=== PATIENT | female | born 1990 | race Caucasian/White ===

== ENCOUNTER 2016-09-23 16:23 | Emergency (ER) | payer OTHER ==
[2016-09-23 16:29] VITALS: BP 115/48; PULSE 73; TEMP 98.5; BMI 27.3
--- NOTE | 2016-09-23 17:52 | PDOC ---
History of Present Illness - General History Source: Patient, Old Records Exam Limitations: No Limitations - History of Present Illness Initial Comments: 09/23/16 17:53 The patient is a 26 year old female who is currently 6 weeks , A1 with no significant past medical history, who presents to the emergency department with vaginal bleeding and abdominal pain. She reports that she had a positive test 4 days ago but has not seen an [facility] yet. She describes her abdominal pain as a cramping sensation. She reports that her vaginal bleeding is brown in color and started out as spotting but has increased. The patient denies chest pain, shortness of breath, headache and dizziness. Denies fever, chills, nausea, vomit, diarrhea and constipation. Denies dysuria, frequency and urgency. LMP: End july Allergies: None Past surgical history: None reported Social history: No alcohol, tobacco or drug use reported <Nik Cohen - Last Filed: 09/23/16 17:55> - General History Source: Patient Exam Limitations: No Limitations <Breanna Ya - Last Filed: 09/23/16 22:40> - General Chief Complaint: Vaginal Bleeding Stated Complaint: VAGINAL BLEEDING/ Past History <Nik Cohen - Last Filed: 09/23/16 17:55> - Past Medical History Asthma: No Cancer: No Cardiac Disorders: No Diabetes: No HTN: No Seizures: No Thyroid Disease: No - Psycho/Social/Smoking Cessation Hx Anxiety: No Suicidal Ideation: No Smoking History: Never smoked Have you smoked in the past 12 months: No Hx Alcohol Use: No Drug/Substance Use Hx: No Substance Use Type: None Hx Substance Use Treatment: No <Breanna Ya - Last Filed: 09/23/16 22:40> - Past Medical History Allergies/Adverse Reactions: Allergies Allergy/AdvReac Type Severity Reaction Status Date / Time No Known Allergies Allergy Verified 09/23/16 16:29 Home Medications: Ambulatory Orders NK [No Known Home Medication] 09/23/16 Review of Systems - Review of Systems Able to Perform ROS?: Yes Comments:: 09/23/16 17:53 GENERAL/CONSTITUTIONAL: No fever or chills. No weakness. HEAD, EYES, EARS, NOSE AND THROAT: No change in vision. No ear pain or discharge. No sore throat. CARDIOVASCULAR: No chest pain or shortness of breath RESPIRATORY: No cough, wheezing, or hemoptysis. GASTROINTESTINAL: (+) Abdominal pain, vaginal bleeding. No nausea, vomiting, diarrhea or constipation. GENITOURINARY: No dysuria, frequency, or change in urination. MUSCULOSKELETAL: No joint or muscle swelling or pain. No neck or back pain. SKIN: No rash NEUROLOGIC: No headache, vertigo, loss of consciousness, or change in strength/ sensation. ENDOCRINE: No increased thirst. No abnormal weight change HEMATOLOGIC/LYMPHATIC: No anemia, easy bleeding, or history of blood clots. ALLERGIC/IMMUNOLOGIC: No hives or skin allergy. <Nik Cohen - Last Filed: 09/23/16 17:55> *Physical Exam - Vital Signs Last Vital Signs Temp Pulse Resp BP Pulse Ox 98.5 F 73 20 115/48 99 09/23/16 16:26 09/23/16 16:26 09/23/16 16:26 09/23/16 16:26 09/23/16 16:26 - Physical Exam Comments: 09/23/16 17:54 GENERAL: Awake, alert, and fully oriented, in no acute distress HEAD: No signs of trauma, normocephalic, atraumatic EYES: PERRLA, EOMI, sclera anicteric, conjunctiva clear ENT: Auricles normal inspection, hearing grossly normal, nares patent, oropharynx clear without exudates. Moist mucosa NECK: Normal ROM, supple, no lymphadenopathy, JVD, or masses LUNGS: No distress, speaks full sentences, clear to auscultation bilaterally HEART: Regular rate and rhythm, normal S1 and S2, no murmurs, rubs or gallops, peripheral pulses normal and equal bilaterally. ABDOMEN: Soft, nontender, normoactive bowel sounds. No guarding, no rebound. No masses EXTREMITIES: Normal inspection, Normal range of motion, no edema. No clubbing or cyanosis. NEUROLOGICAL: A&O X 3 SKIN: Warm, Dry, normal turgor, no rashes or lesions noted PELVIC: <Nik Cohen - Last Filed: 09/23/16 17:55> - Vital Signs Last Vital Signs Temp Pulse Resp BP Pulse Ox 98.5 F 73 20 115/48 99 09/23/16 16:26 09/23/16 16:26 09/23/16 16:26 09/23/16 16:26 09/23/16 16:26 <Breanna Ya - Last Filed: 09/23/16 22:40> ED Treatment Course - LABORATORY CBC & Chemistry Diagram: 09/23/16 18:05 09/23/16 18:05 <Breanna Ya - Last Filed: 09/23/16 22:40> Medical Decision Making - Medical Decision Making 09/23/16 17:50 26 yo G3p ( 1 miscarriage, 1 vag ) currently 6 weeks by LMP end of july, here with spotting. and cramping. started today. brownish and sticky, less than period. no lightheaded. no mod factors. no prior ectopic. has not seen OB yet, just had positive home test 4 days prior. on exam awake alert lungs clear heart RRR no m/r.g abd soft NT ND. skin warm and dryl. ext wwp. skin warm no rash. nuero alert and oriented. plan: differential: ecoptic, threated AB, early , missed ab. plan tvus labs ivf, reassess. blood type for RH <Breanna Ya - Last Filed: 09/23/16 22:40> *DC/Admit/Observation/Transfer - Attestations Scribe Attestion: 09/23/16 17:54 Documentation prepared by Nik Cohen, acting as medical library assistant for Breanna Ya MD <Nik Cohen - Last Filed: 09/23/16 17:55> <Breanna Ya - Last Filed: 09/23/16 22:40> Diagnosis at time of Disposition: Missed , Ectopic - Discharge Dispostion Disposition: HOME Condition at time of disposition: Good - Referrals Referrals: Coral Black MD [Staff Physician] - - Patient Instructions Printed Discharge Instructions: Ectopic Additional Instructions: you need to return to the hospital in 48 hours to have a repeat beta HCG level drawn. the is not visible in the uterus, therfore ectopic is still a concerns. return for sudden onset worsening pain, bleeding or any concerns.
[2016-09-23] MEDS ORDERED: SODIUM CHLORIDE 0.9% 1000 ML INFUS.BAG IV ONE (17:53)
[2016-09-23 18:13] LABS: BASOPHIL 0.5 % (0-2.0); EOSINOPHIL 0.9 % (0-4.5); MCH 29.5 pg (25.7-33.7); MCHC 34.6 g/dl (32.0-36.0); MEAN CELL VOLUME 85.1 fl (80-96); MEAN PLT VOLUME 7.1 fl (7.5-11.1); NEUTROPHILS 67.8 % (42.8-82.8); PLATELET COUNT 387 K/MM3 (134-434); RDW 13.8 % (11.6-15.6); WHITE BLOOD COUNT 7.4 K/mm3 (4.0-10.0)
[2016-09-23 18:48] LABS: ALBUMIN 3.4 g/dl (3.4-5.0); ANION GAP 7 (8-16); BILIRUBIN,TOTAL 0.2 mg/dL (0.2-1.0); CALCIUM 8.7 mg/dL (8.5-10.1); CO2 25 mmol/L (21-32); CREATININE 0.5 mg/dL (0.55-1.02); GLUCOSE,RANDOM 99 mg/dL (74-106); SGOT/AST 17 U/L (15-37); SGPT/ALT 27 U/L (12-78); TOT PROT 6.7 g/dl (6.4-8.2)
[2016-09-23 19:03] LABS: ALK PHOS 87 U/L (45-117)
[2016-09-23 19:24] LABS: URINE APPEARANCE CLOUDY; URINE BILIRUBIN NEGATIVE (NEGATIVE); URINE BLOOD 3+ (NEGATIVE); URINE COLOR DKYELLOW; URINE GLUCOSE (UA) NEGATIVE (NEGATIVE); URINE KETONE NEGATIVE (NEGATIVE); URINE LEUK ESTERASE NEGATIVE (NEGATIVE); URINE NITRITE NEGATIVE (NEGATIVE); URINE UROBILINOGEN NEGATIVE mg/dL (0.2-1.0)
[2016-09-23 19:47] LABS: URINE PROTEIN 2+ (NEGATIVE)
[2016-09-23 20:22] LABS: CALCIUM OXALATE CRYSTALS RARE /hpf (NONE SEEN); URINE BACTERIA RARE /hpf (NONE SEEN); URINE MUCUS MODERATE; URINE RBC 1157 /hpf (0-3); URINE WBC 17 /hpf (3-5)
== END 2016-09-23 23:01 | disposition home or self-care (01) ==
LOC: JER 16:23
DX: O26.891 Other specified pregnancy related conditions, first trimester (principal); Z3A.01 Less than 8 weeks gestation of pregnancy; O02.1 Missed abortion; O00.90 Unspecified ectopic pregnancy without intrauterine pregnancy
CPT/HCPCS: 36415; 76817-TC; 80053; 81003; 81015; 84702; 85025; 86850; 86900; 86901; 99282-25

== ENCOUNTER 2016-09-25 14:45 | Emergency (ER) | payer OTHER ==
[2016-09-25 15:12] VITALS: BP 100/59; PULSE 70; TEMP 98.3; BMI 27.3
--- NOTE | 2016-09-25 16:33 | PDOC ---
History of Present Illness - General Chief Complaint: Revisit, Lab Variance Stated Complaint: FOLLOW-UP Time Seen by Provider: 09/25/16 15:41 History Source: Patient Exam Limitations: No Limitations - History of Present Illness Initial Comments: 09/25/16 16:28 Patient was seen in this emergency department 2 days ago with complaints of abdominal pain, and vaginal bleeding. Was found to be at that time with a beta hCG of 2248. Ultrasound did not reveal any intrauterine . Instructed to return to this emergency Department in 2 days for repeat beta hCG and evaluation for persistent abdominal pain and bleeding. Patient reports she has consistent bleeding and is moderately heavier than her normal menstrual cycle and has noted some clots and tissue-like substance. Patient denies fever, no nausea or vomiting, but has some intermittent cramping primarily on the left side with radiation to the back. Bowels and bladder are normal Timing/Duration: unsure (last normal menstrual period is end of July) Associated Symptoms: reports: fever/chills Past History - Travel Traveled outside of the country in the last 30 days: No Close contact w/someone who was outside of country & ill: No - Past Medical History Allergies/Adverse Reactions: Allergies Allergy/AdvReac Type Severity Reaction Status Date / Time No Known Allergies Allergy Verified 09/25/16 15:09 Home Medications: Ambulatory Orders NK [No Known Home Medication] 09/23/16 Asthma: No Cancer: No Cardiac Disorders: No Diabetes: No HTN: No Seizures: No Thyroid Disease: No - Immunization History Immunization Up to Date: Yes - Psycho/Social/Smoking Cessation Hx Anxiety: No Suicidal Ideation: No Smoking History: Never smoked Have you smoked in the past 12 months: No Hx Alcohol Use: No Drug/Substance Use Hx: No Substance Use Type: None Hx Substance Use Treatment: No Review of Systems - Review of Systems Able to Perform ROS?: Yes Is the patient limited Kinyarwanda proficient: Yes Constitutional: Yes: Symptoms Reported, See HPI, Loss of Appetite. No: Fever HEENTM: Yes: See HPI. No: Symptoms Reported Respiratory: Yes: See HPI. No: Symptoms reported ABD/GI: Yes: Symptoms Reported, See HPI, Abdominal cramping : No: Symptoms Reported Neurological: No: Symptoms reported All Other Systems: Reviewed and Negative *Physical Exam - Vital Signs Last Vital Signs Temp Pulse Resp BP Pulse Ox 98.3 F 70 18 100/59 98 09/25/16 15:00 09/25/16 15:00 09/25/16 15:00 09/25/16 15:00 09/25/16 15:00 - Physical Exam General Appearance: Yes: Nourished, Appropriately Dressed, Apparent Distress HEENT: positive: WALLACE, Normal ENT Inspection, TMs Normal, Pharynx Normal Neck: positive: Supple. negative: Tender Respiratory/Chest: positive: Lungs Clear, Normal Breath Sounds Cardiovascular: positive: Regular Rate Gastrointestinal/Abdominal: positive: Normal Bowel Sounds, Tender (mild suprapubic tenderness, without rebound or guarding, no fullness), Soft. negative: Guarding, Rebound, Tenderness Musculoskeletal: positive: Normal Inspection Extremity: positive: Normal Capillary Refill, Normal Inspection Integumentary: positive: Normal Color, Dry, Warm, Pale Neurologic: positive: crew person II-XII NML intact, Fully Oriented, Alert, Normal Mood/ Affect, Normal Response, Motor Strength 5/5 ED Treatment Course - RADIOLOGY Radiology Studies Ordered: Category Date Time Status LIMITED US [US] Stat Ultrasound 09/25/16 15:50 Ordered Medical Decision Making - Medical Decision Making 09/25/16 16:33 09/25/16 19:13 Repeat ultrasound did not reveal any intrauterine nor any obvious mass or evidence of ectopic . Patient discussed findings of beta hCG reduction and repeated ultrasound without evidence of and diagnosis of miscarriage. Will follow-up with Dr. Marie or [facility] doctor early next week. Understands to return immediately for worsened pain, fevers, worsening bleeding or any problems. 09/25/16 19:15 *DC/Admit/Observation/Transfer Diagnosis at time of Disposition: Missed - Discharge Dispostion Disposition: HOME Condition at time of disposition: Stable Admit: No - Referrals Referrals: Stephen Eastman MD [Staff Physician] - - Patient Instructions Printed Discharge Instructions: DI for Miscarriage Additional Instructions: Avoid strenuous activity or heavy lifting until symptoms resolve Drink lots of fluids, soups, water, teas FOllow up with [facility] early next week for reevaluation Your initial beta hCG was 2248 on 816, today's beta hCG was 576 - Post Discharge Activity Work/School Note: Back to Work
== END 2016-09-25 19:13 | disposition home or self-care (01) ==
LOC: JERFT 14:45
DX: O02.1 Missed abortion (principal)
CPT/HCPCS: 36415; 76815-TC; 84702; 99281-25

== ENCOUNTER 2016-12-30 13:40 | Emergency (ER) | payer OTHER ==
[2016-12-30 13:47] VITALS: BMI 27.7
[2016-12-30] MEDS ORDERED: ACETAMINOPHEN 1000 MG/100 ML VIAL (NON FORMULARY) IVPB ONE (15:03)
--- NOTE | 2016-12-30 15:03 | PDOC ---
History of Present Illness - General Chief Complaint: Headache Stated Complaint: HEADACHE Time Seen by Provider: 12/30/16 14:21 History Source: Patient Exam Limitations: No Limitations - History of Present Illness Initial Comments: 12/30/16 14:59 26F 10 weeks [id number] presenting with headache increasing in intensity. 2 days ago woke up with bifrontal headache that progressed down her left face and neck 8-10. Pain increased when chewing food on the left side. No change in vision, no auras. Had migraine episode for a week before but that pain is notjhing like it. Pain reproducible on palpation Miscarriage on September 25. 12/30/16 16:13 Past History - Past Medical History Allergies/Adverse Reactions: Allergies Allergy/AdvReac Type Severity Reaction Status Date / Time No Known Allergies Allergy Verified 12/30/16 14:23 Home Medications: Ambulatory Orders Pnv with Ca,No.72/Iron/FA [ Plus Tablet] 1 each PO DAILY 12/30/16 Asthma: No Cancer: No Cardiac Disorders: No COPD: No Diabetes: No HTN: No Seizures: No Thyroid Disease: No - Immunization History Immunization Up to Date: Yes - Suicide/Smoking/Psychosocial Hx Smoking History: Never smoked Have you smoked in the past 12 months: No Hx Alcohol Use: No Drug/Substance Use Hx: No Substance Use Type: None Hx Substance Use Treatment: No *Physical Exam - Vital Signs Last Vital Signs Temp Pulse Resp BP Pulse Ox 98.4 F 101 H 20 113/60 97 12/30/16 13:44 12/30/16 13:44 12/30/16 13:44 12/30/16 13:44 12/30/16 13:44 ED Treatment Course - LABORATORY CBC & Chemistry Diagram: 12/30/16 15:30 12/30/16 15:30 *DC/Admit/Observation/Transfer Diagnosis at time of Disposition: Migraine - Discharge Dispostion Disposition: HOME Admit: No - Referrals Referrals: Eladio Berry DO [Staff Physician] - - Patient Instructions Printed Discharge Instructions: Chiari Malformation Additional Instructions: Follow up with appointment with Dr. Berry. Come back to the ED for any new, worsening or concerning symptom. Come back also if headache gets worse or persists. - Post Discharge Activity
[2016-12-30] MEDS ORDERED: METOCLOPRAMIDE HCL INJECTION 10 MG/2 ML VIAL IVPUSH ONE (15:04)
[2016-12-30] MEDS ORDERED: ACETAMINOPHEN INJECTION 100 ML IVPB ONE (15:09)
[2016-12-30] MEDS ORDERED: METOCLOPRAMIDE HCL INJECTION 10 MG/2 ML VIAL ONE (15:09)
[2016-12-30 15:12] VITALS: BP 91/70; PULSE 98; TEMP 98.1
[2016-12-30] MEDS ORDERED: SODIUM CHLORIDE 1,000 ML IV STA (15:12)
--- NOTE | 2016-12-30 15:12 | PDOC ---
Attending Attestation - Resident Resident Name: Thierno Saleh - ED Attending Attestation I have performed the following: I have examined & evaluated the patient, The case was reviewed & discussed with the resident, I agree w/resident's findings & plan, Exceptions are as noted - HPI HPI: 26 yo F currently 10 WGA presents with headache. She states the headache was initially bifrontal, then migrated to L face. The left side of her face is extremely painful, making it difficult to move her jaw. Her face is painful to the touch as well. Denies weakness, numbness. No prior similar symptoms. She typically does not suffer from migraines. No N/V, light sensitivity, sensitivity to sound. - Physicial Exam PE: GENERAL: Awake, alert, and fully oriented, in no acute distress HEAD: No signs of trauma. Left side of face tender to palpation. EYES: PERRLA, EOMI, sclera anicteric, conjunctiva clear ENT: Auricles normal inspection, hearing grossly normal, nares patent, oropharynx clear without exudates. Moist mucosa NECK: Normal ROM, supple, no lymphadenopathy, JVD, or masses LUNGS: Breath sounds equal, clear to auscultation bilaterally. No wheezes, and no crackles HEART: Regular rate and rhythm, normal S1 and S2, no murmurs, rubs or gallops ABDOMEN: Soft, nontender, normoactive bowel sounds. No guarding, no rebound. No masses EXTREMITIES: Normal range of motion, no edema. No clubbing or cyanosis. No cords, erythema, or tenderness NEUROLOGICAL: Cranial nerves II through XII grossly intact. Normal speech, normal gait SKIN: Warm, Dry, normal turgor, no rashes or lesions noted. - Medical Decision Making Pt with severe headache. DDx includes cluster headache, trigeminal neuralgia, and cerebral venous thrombosis. D/w neuro, will obtain MRI to further evaluate.
[2016-12-30 15:39] LABS: BASOPHIL 0.2 % (0-2.0); EOSINOPHIL 0.1 % (0-4.5); MCH 29.6 pg (25.7-33.7); MCHC 34.6 g/dl (32.0-36.0); MEAN CELL VOLUME 85.6 fl (80-96); MEAN PLT VOLUME 6.9 fl (7.5-11.1); NEUTROPHILS 88.6 % (42.8-82.8); PLATELET COUNT 380 K/MM3 (134-434); RDW 13.5 % (11.6-15.6); WHITE BLOOD COUNT 14.5 K/mm3 (4.0-10.0)
[2016-12-30 16:02] LABS: ALBUMIN 3.2 g/dl (3.4-5.0); ANION GAP 11 (8-16); BILIRUBIN,TOTAL 0.4 mg/dL (0.2-1.0); CALCIUM 9.1 mg/dL (8.5-10.1); CO2 23 mmol/L (21-32); CREATININE 0.5 mg/dL (0.55-1.02); GLUCOSE,RANDOM 79 mg/dL (74-106); SGOT/AST 13 U/L (15-37); SGPT/ALT 17 U/L (12-78)
[2016-12-30 16:17] LABS: ALK PHOS 100 U/L (45-117)
[2016-12-30 16:43] LABS: URINE APPEARANCE SLCLOUDY; URINE BILIRUBIN NEGATIVE (NEGATIVE); URINE BLOOD NEGATIVE (NEGATIVE); URINE COLOR YELLOW; URINE GLUCOSE (UA) NEGATIVE (NEGATIVE); URINE KETONE 2+ (NEGATIVE); URINE NITRITE NEGATIVE (NEGATIVE); URINE PROTEIN NEGATIVE (NEGATIVE); URINE UROBILINOGEN NEGATIVE mg/dL (0.2-1.0)
[2016-12-30 18:51] LABS: URINE LEUK ESTERASE Negative (NEGATIVE)
== END 2016-12-30 20:06 | disposition home or self-care (01) ==
LOC: JER 13:40
PROC: 3E0337Z Introduction of Electrolytic and Water Balance Substance into Peripheral Vein, Percutaneous Approach (ICD-10-PCS; principal; 2016-12-30)
PROC: 3E033GC Introduction of Other Therapeutic Substance into Peripheral Vein, Percutaneous Approach (ICD-10-PCS; 2016-12-30)
PROC: 3E033NZ Introduction of Analgesics, Hypnotics, Sedatives into Peripheral Vein, Percutaneous Approach (ICD-10-PCS; 2016-12-30)
DX: G43.909 Migraine, unspecified, not intractable, without status migrainosus (principal)
CPT/HCPCS: 36415; 70544-TC; 70551-TC; 80053; 81003; 84702; 85025; 99284-25

== ENCOUNTER 2017-01-07 10:33 | Emergency (ER) | payer OTHER ==
[2017-01-07 10:38] VITALS: BP 107/92; PULSE 84; TEMP 98.2; BMI 28.3
--- NOTE | 2017-01-07 11:25 | PDOC ---
History of Present Illness - General Chief Complaint: Vaginal Bleeding Stated Complaint: VAGINAL BLEEDING (14 WKS ) Time Seen by Provider: 01/07/17 11:10 - History of Present Illness Initial Comments: 01/07/17 11:25 26 yo at 14 wga confirmed by U/S, and no significant pmh who presents with vaginal bleeding. Pt. reports transient episode of vaginal bleeding this AM noticed after urinating. States that she visualized bright red blood on toilet paper. Also endorses crampy, intermittent, RLQ abdominal pain beginning yesterday evening. No identifiable triggers or alleviators. + nausea without vomiting. Denies dysuria, hematuria, flank pain, fevers/chills, constipation, diarrhea, chest pain, SOB, lightheadedness, YANEZ. 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 Recent Abdominal U/S (01/06/17) with viable intrauterine gestation. Denies alcohol, tobacco, illicit drug use. Past History - Past Medical History Allergies/Adverse Reactions: Allergies Allergy/AdvReac Type Severity Reaction Status Date / Time No Known Allergies Allergy Verified 01/07/17 10:38 Home Medications: Ambulatory Orders Pnv with Ca,No.72/Iron/FA [ Plus Tablet] 1 each PO DAILY 12/30/16 Asthma: No Cancer: No Cardiac Disorders: No COPD: No Diabetes: No HTN: No Seizures: No Thyroid Disease: No Other medical history: denies - Reproductive History (#): 5 Para: 1 Therapeutic (s) & number: Yes (3) Spontaneous : 1 - Immunization History Immunization Up to Date: Yes - Suicide/Smoking/Psychosocial Hx Smoking History: Never smoked Have you smoked in the past 12 months: No Information on smoking cessation initiated: No Hx Alcohol Use: No Drug/Substance Use Hx: No Substance Use Type: None Hx Substance Use Treatment: No Review of Systems - Review of Systems Comments:: 01/07/17 11:34 GENERAL/CONSTITUTIONAL: No fever or chills. No weakness. HEAD, EYES, EARS, NOSE AND THROAT: No change in vision. No ear pain or discharge. No sore throat.- CARDIOVASCULAR: No chest pain or shortness of breath RESPIRATORY: No cough, wheezing, or hemoptysis. GASTROINTESTINAL: + abdominal pain, nausea. no vomiting, diarrhea or constipation. GENITOURINARY: No dysuria, frequency, or change in urination. MUSCULOSKELETAL: No joint or muscle swelling or pain. No neck or back pain. SKIN: No rash NEUROLOGIC: No headache, vertigo, loss of consciousness, or change in strength/ sensation. ENDOCRINE: No increased thirst. No abnormal weight change HEMATOLOGIC/LYMPHATIC: No anemia, easy bleeding, or history of blood clots. ALLERGIC/IMMUNOLOGIC: No hives or skin allergy. *Physical Exam - Vital Signs Last Vital Signs Temp Pulse Resp BP Pulse Ox 98.2 F 84 18 107/92 99 01/07/17 10:36 01/07/17 10:36 01/07/17 10:36 01/07/17 10:36 01/07/17 10:36 - Physical Exam Comments: 01/07/17 11:34 GENERAL: Awake, alert, and fully oriented, in no acute distress HEAD: No signs of trauma, normocephalic, atraumatic EYES: PERRLA, EOMI, sclera anicteric, conjunctiva clear ENT: Hearing grossly normal, nares patent, oropharynx clear without exudates. Moist mucosa NECK: Normal ROM, no JVD, or masses LUNGS: No distress, speaks full sentences, clear to auscultation bilaterally HEART: Regular rate and rhythm, normal S1 and S2, no murmurs, rubs or gallops, peripheral pulses normal and equal bilaterally. ABDOMEN: Soft, RLQ ttp, normoactive bowel sounds. No guarding, no rebound, no rigidty. No masses. Absent CVA ttp. + suprapubic ttp. Pelvic: External genitalia normal.Cervical os closed. Absent bleeding. scant white discharge.Absent erythema or lesions. Neg tenderness on bimanual exam. EXTREMITIES : Normal inspection, Normal range of motion, no edema. No clubbing or cyanosis. SKIN: Warm, Dry, normal turgor, no rashes or lesions noted. ED Treatment Course - LABORATORY CBC & Chemistry Diagram: 01/07/17 11:30 01/07/17 11:30 Medical Decision Making - Medical Decision Making 01/07/17 11:35 26 yo at 14 wga confirmed by U/S, and no significant pmh who presents following transient episode of bright red vaginal bleeding this AM noticed after urinating. No visible clotting. States that she visualized bright red blood on toilet paper. Also endorses crampy, intermittent, RLQ abdominal pain beginning yesterday evening. No identifiable triggers or alleviators. + nausea without vomiting. Denies dysuria, hematuria, flank pain, fevers/chills, constipation, diarrhea, BRBPR, chest pain, SOB, lightheadedness, YANEZ. Physical exam with RLQ ttp and mild suprapubic ttp. Pelvic exam benign with absent bleeding, signs of infection, and cervical os close.d Will obtain U/S to r/o ectopic . Will consider ovarian pathology vs. threatened in setting of abdominal pain, and vaginal bleeding. Differential also includes cystitis. ED Course: CBC, CMP, UA, BHCG Transabdominal U/S 01/07/17 13:04 01/07/17 14:02 [facility] [place]: Unremarkable UA: 2 + Blood, 9 WBC, 2 RBC, Nitrite Neg U/S: Single live gestation at 15 w 1 d with FHR 131. 01/07/17 14:39 Patient is stable and ready for discharge with return precautions. *DC/Admit/Observation/Transfer Diagnosis at time of Disposition: Abdominal pain affecting - Discharge Dispostion Disposition: HOME Condition at time of disposition: Stable Admit: No - Referrals - Patient Instructions Printed Discharge Instructions: DI for Vaginal Bleeding, DI for Abdominal Pain -- Early Additional Instructions: Please return to the emergency department with any new or worsening symptoms or concerns. - Post Discharge Activity - Attestations Physician Attestion: 01/07/17 14:39 I attest to the documentation provided in this note.
--- NOTE | 2017-01-07 11:39 | PDOC ---
Attending Attestation - Resident Resident Name: Víctor Hendrixson - ED Attending Attestation I have performed the following: The case was reviewed & discussed with the resident, I agree w/resident's findings & plan - HPI HPI: 01/07/17 15:06 Pt presents to the ED complaining of vaginal bleeding. Patient 15 weeks . - Physicial Exam PE: 01/07/17 15:07 Patient examined by resident. 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 Os closed with minimal bleeding on resident's exam. - Medical Decision Making 01/07/17 15:08 Pt presents to the ED complaining of vaginal bleeding. Os closed on resident's pelvic exam. Patient needed to urgently leave ED prior to my exam. Plan was for discharge with follow up with primary OB.
[2017-01-07 12:01] LABS: URINE APPEARANCE SLCLOUDY; URINE BILIRUBIN NEGATIVE (NEGATIVE); URINE BLOOD 2+ (NEGATIVE); URINE COLOR YELLOW; URINE GLUCOSE (UA) NEGATIVE (NEGATIVE); URINE KETONE TRACE (NEGATIVE); URINE NITRITE NEGATIVE (NEGATIVE); URINE PROTEIN NEGATIVE (NEGATIVE)
[2017-01-07 12:05] LABS: BASOPHIL 0.4 % (0-2.0); EOSINOPHIL 0.9 % (0-4.5); MCH 29.3 pg (25.7-33.7); MCHC 34.5 g/dl (32.0-36.0); MEAN CELL VOLUME 85.1 fl (80-96); MEAN PLT VOLUME 6.4 fl (7.5-11.1); NEUTROPHILS 76.5 % (42.8-82.8); PLATELET COUNT 545 K/MM3 (134-434); WHITE BLOOD COUNT 6.6 K/mm3 (4.0-10.0)
[2017-01-07 12:26] LABS: ALBUMIN 2.9 g/dl (3.4-5.0); ALK PHOS 141 U/L (45-117); ANION GAP 8 (8-16); BILIRUBIN,TOTAL 0.3 mg/dL (0.2-1.0); CALCIUM 8.5 mg/dL (8.5-10.1); CO2 23 mmol/L (21-32); CREATININE 0.4 mg/dL (0.55-1.02); GLUCOSE,RANDOM 82 mg/dL (74-106); SGOT/AST 10 U/L (15-37); SGPT/ALT 20 U/L (12-78)
[2017-01-07 12:59] LABS: URINE BACTERIA RARE /hpf (NONE SEEN); URINE MUCUS RARE; URINE RBC 2 /hpf (0-3); URINE WBC 9 /hpf (3-5)
[2017-01-07 16:58] LABS: URINE LEUK ESTERASE Negative (NEGATIVE)
== END 2017-01-07 15:01 | disposition home or self-care (01) ==
LOC: JER 10:33
DX: O26.891 Other specified pregnancy related conditions, first trimester (principal); N93.9 Abnormal uterine and vaginal bleeding, unspecified; Z3A.12 12 weeks gestation of pregnancy
CPT/HCPCS: 36415; 76801-TC; 80053; 81003; 81015; 84702; 85025; 86850; 86900; 86901; 99283-25

== ENCOUNTER → 2017-05-18 | Emergency (ER) | payer OTHER ==
[~2017-05-18] MED LIST: ACETAMINOPHEN INJECTION 100 ML IVPB ONE; METOCLOPRAMIDE HCL INJECTION 10 MG/2 ML VIAL ONE
--- NOTE | 2017-05-18 17:20 | PDOC ---
Rapid Medical Evaluation Time Seen by Provider: 05/18/17 17:18 Medical Evaluation: Allergies Allergy/AdvReac Type Severity Reaction Status Date / Time No Known Allergies Allergy Verified 01/07/17 10:38 05/18/17 17:18 I have performed a brief in-person evaluation of this patient. The patient presents with a chief complaint of: , 33 weeks , numbness and tingling to R side of face since yesterday, itching to entire body , +SOB Pertinent physical exam findings: well appearing, no focal deficits I have ordered the following: labs The patient will proceed to the ED for further evaluation. Discharge Disposition - Diagnosis Headache in - Referrals - Patient Instructions - Post Discharge Activity
[2017-05-18 17:21] VITALS: BP 105/67; PULSE 97; TEMP 98.2; BMI 33.2
[2017-05-18 18:40] LABS: BASO % 0.3 % (0-2.0); EOS % 0.5 % (0-4.5); HEMATOCRIT 33.6 % (32.4-45.2); HEMOGLOBIN 11.6 GM/dL (10.7-15.3); LYMPH % 10.9 % (8-40); MCH 29.4 pg (25.7-33.7); MCHC 34.5 g/dl (32.0-36.0); MEAN CELL VOLUME 85.2 fl (80-96); MEAN PLT VOLUME 6.9 fl (7.5-11.1); MONO % 7.2 % (3.8-10.2); NEUT % 81.1 % (42.8-82.8); PLATELET COUNT 450 K/MM3 (134-434); RBC 3.94 M/mm3 (3.60-5.2); RDW 14.4 % (11.6-15.6); WHITE BLOOD COUNT 9.2 K/mm3 (4.0-10.0)
[2017-05-18 19:05] LABS: ALBUMIN 2.3 g/dl (3.4-5.0); ANION GAP 8 (8-16); BLOOD UREA NITROGEN 6 mg/dL (7-18); CALCIUM 8.5 mg/dL (8.5-10.1); CHLORIDE 108 mmol/L (98-107); CO2 22 mmol/L (21-32); CREATININE 0.4 mg/dL (0.55-1.02); GLUCOSE,RANDOM 89 mg/dL (74-106); POTASSIUM 3.8 mmol/L (3.5-5.1); SGOT/AST 21 U/L (15-37); SODIUM 138 mmol/L (136-145)
[2017-05-18 19:10] LABS: ALK PHOS 160 U/L (45-117); BILIRUBIN,TOTAL 0.2 mg/dL (0.2-1.0); SGPT/ALT 25 U/L (12-78); TOT PROT 6.1 g/dl (6.4-8.2)
[2017-05-18 23:57] LABS: INR 0.95 (0.82-1.09); PROTHROMBIN TIME (PATIENT) 10.7 SEC (9.98-11.88)
== END | disposition left against medical advice (07) ==
LOC: JER 17:09
DX: O26.893 Other specified pregnancy related conditions, third trimester (principal); Z3A.33 33 weeks gestation of pregnancy; R51 Headache
CPT/HCPCS: 36415; 80053; 85025; 85379; 85610; 99281-25

== ENCOUNTER 2017-05-19 09:08 | Emergency (ER) | payer OTHER ==
[2017-05-19 09:17] VITALS: TEMP 98.4; BMI 33.2
--- NOTE | 2017-05-19 10:22 | PDOC ---
History of Present Illness - General History Source: Patient Exam Limitations: No Limitations - History of Present Illness Initial Comments: 05/19/17 11:26 The patient is a 27 year old female, 33 weeks , with a significant past medical history of, who presents to the emergency department with persistent right sided facial pain with associated headache for about 3 days. The patient presented to the ED yesterday for the same symptoms and also reported slight SOB and intermittent episodes of chest pain. She had a d-dimer drawn in [facility] and was sent to the main ED for further evaluation, however, the patient states she waited very long and left AMA. She returns today because she got a call about a positive D-dimer. The patient denies any SOB or CP now, but does admit these symptoms occur occasionally which resolves on its own. She states her tight, 8/10, right sided headache and facial pain is her most worrisome symptoms at this time. She also reports right sided throat pain only with swallowing. She reportedly had an MRI at about 3 months which was positive for sinusitis and a mild congenital defect. She denies dizziness. She denies fever, chills, nausea, vomit, diarrhea and constipation. She denies dysuria, frequency, urgency and hematuria. 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 <Francia West - Last Filed: 05/19/17 12:53> <Ericka Mar - Last Filed: 05/21/17 08:43> - General Chief Complaint: Revisit, Lab Variance Stated Complaint: LAB VARIANCE (32 WKS ) Time Seen by Provider: 05/19/17 10:21 Past History <Francia West - Last Filed: 05/19/17 12:53> - Past Medical History Asthma: No Cancer: No Cardiac Disorders: No COPD: No Diabetes: No HTN: No Seizures: No Thyroid Disease: No - Reproductive History (#): 5 Para: 1 Therapeutic (s) & number: Yes (3) Spontaneous : 1 - Immunization History Immunization Up to Date: Yes - Suicide/Smoking/Psychosocial Hx Smoking History: Never smoked Have you smoked in the past 12 months: No Information on smoking cessation initiated: No Hx Alcohol Use: No Drug/Substance Use Hx: No Substance Use Type: None Hx Substance Use Treatment: No <Ericka Mar - Last Filed: 05/21/17 08:43> - Past Medical History Allergies/Adverse Reactions: Allergies Allergy/AdvReac Type Severity Reaction Status Date / Time No Known Allergies Allergy Verified 05/19/17 09:14 Home Medications: Ambulatory Orders Pnv,Calcium 72/Iron/Folic Acid [ Plus Tablet] 1 each PO DAILY 12/30/16 Amoxicillin - [Amoxicillin 875mg Tablet -] 875 mg PO BID #20 tab 05/19/17 Ferrous Sulfate [Iron] 325 mg PO DAILY 05/19/17 Review of Systems - Review of Systems Able to Perform ROS?: Yes Comments:: 05/19/17 11:26 CONSTITUTIONAL: Absent: fever, no chills, no fatigue EYES: Absent: visual changes ENT: Absent: ear pain, no sore throat CARDIOVASCULAR: (+) intermittent chest pain, Absent: no palpitations RESPIRATORY: (+) occasional SOB. Absent: cough, GASTROINTESTINAL: Absent: abdominal pain, no nausea, no vomiting, no constipation, no diarrhea GENITOURINARY: Absent: dysuria, no frequency, no hematuria MUSCULOSKELETAL: Absent: back pain, no arthralgia, no myalgia SKIN: Absent: rash NEURO: (+) headache <Francia West - Last Filed: 05/19/17 12:53> *Physical Exam - Vital Signs Last Vital Signs Temp Pulse Resp BP Pulse Ox 98.4 F 85 16 97/59 100 05/19/17 09:15 05/19/17 09:15 05/19/17 09:15 05/19/17 09:15 05/19/17 09:15 <Francia West - Last Filed: 05/19/17 12:53> - Vital Signs Last Vital Signs Temp Pulse Resp BP Pulse Ox 98.4 F 85 16 97/59 100 05/19/17 09:15 05/19/17 09:15 05/19/17 09:15 05/19/17 09:15 05/19/17 09:15 <Ericka Mar - Last Filed: 05/21/17 08:43> ED Treatment Course - LABORATORY CBC & Chemistry Diagram: 05/19/17 11:35 05/19/17 11:35 <Francia West - Last Filed: 05/19/17 12:53> - LABORATORY CBC & Chemistry Diagram: 05/19/17 11:35 05/19/17 11:35 <Ericka Mar - Last Filed: 05/21/17 08:43> Medical Decision Making - Medical Decision Making 05/19/17 12:00 Discussed with patient the risks and benefits of having the CT scan during . All of patient's questions and concerns have been addressed. Advised the patient to call her maple products maker for support in making this decision. 05/19/17 12:30 Patient states she will have the CT scan. 05/19/17 12:53 Pt was transported to CT where she then refused the CT scan. Pt will sign out AMA. Pt was advised to return to the ED for worsening symptoms. <Francia West - Last Filed: 05/19/17 12:53> - Medical Decision Making This a 27-year-old female presented to emergency department after being called regarding an elevated d-dimer. Briefly, she is 33 weeks . She presents emergency department with a complaint of right facial right head and right throat pain. She denies fevers or chills. Her symptoms began approximately 2 days ago. She took Tylenol for her headache and that slightly helps, but her pain returned today. She was seen in the emergency department yesterday in the rapid assessment area. She left prior to evaluation. Her labs are significant for an elevated d-dimer. Apparently patient at that time reported intermittent shortness of breath, intermittent chest pain. I reviewed this patient's prior MRI reveals Arnold-Chiari syndrome in the past As well as chronic and acute sinusitis 05/19/17 12:39 Laboratory Tests 05/19/17 05/19/17 11:35 11:35 WBC 7.6 Hgb 11.7 Hct 34.4 Plt Count 443 H Sodium 139 Potassium 3.9 Chloride 108 H Carbon Dioxide 22 BUN 6 L Creatinine 0.4 L Random Glucose 93 05/19/17 13:[address] I have explained the risks Pt still does not want to stay Will discharge AMA Will give Augmentin for sinusitis Clinical impression: sinusitis, initial presentation Note: The patient insists on leaving the emergency dept and is signing out against medical advice. The patient understands the risks and complications that may result from the refusal of medical care and admission which includes and permanent disability. The patient has the mental capacity of understanding the risks of refusing care and is capable of making an informed decision. The patient was instructed to return to the emergency department should she change her mind regarding medical care or should her condition worsen. The patient signed the Against Medical Advice form. <Ericka Mar - Last Filed: 05/21/17 08:43> *DC/Admit/Observation/Transfer - Attestations Scribe Attestion: 05/19/17 11:27 Documentation prepared by Francia West, acting as medical staff assistant for Ericka Mar MD <Francia West - Last Filed: 05/19/17 12:53> - Discharge Dispostion Admit: No <Ericka Mar - Last Filed: 05/21/17 08:43> Diagnosis at time of Disposition: Sinusitis Qualifiers: Sinusitis location: maxillary Chronicity: acute Recurrence: non-recurrent Qualified Code(s): J01.00 - Acute maxillary sinusitis, unspecified - Discharge Dispostion Disposition: AGAINST MEDICAL ADVICE Condition at time of disposition: Stable - Prescriptions Prescriptions: Amoxicillin - [Amoxicillin 875mg Tablet -] 875 mg PO BID #20 tab - Referrals Referrals: Nicolle Morales MD [Primary Care Provider] - - Patient Instructions Printed Discharge Instructions: DI for Sinusitis Additional Instructions: Nathan Thank you for coming to the ER today Please take medications as prescribed Please take tylenol for pain every 8 hours as needed Please follow up with your credit risk officer within 1 week Return IMMEDIATELY to the ER for chest pain, shortness of breath, worsening symptoms, ANY OTHER CONCERNS OR COMPLAINT We would like to see you if you have any symptoms that concern you - Post Discharge Activity
[2017-05-19] MEDS ORDERED: METOCLOPRAMIDE HCL INJECTION 10 MG/2 ML VIAL IVPUSH ONE (10:59)
[2017-05-19] MEDS ORDERED: ACETAMINOPHEN 1000 MG/100 ML VIAL (NON FORMULARY) IVPB ONE (10:59)
[2017-05-19] MEDS ORDERED: SODIUM CHLORIDE 1,000 ML IV STA (10:59)
[2017-05-19 11:49] LABS: BASO % 0.1 % (0-2.0); EOS % 0.6 % (0-4.5); HEMATOCRIT 34.4 % (32.4-45.2); HEMOGLOBIN 11.7 GM/dL (10.7-15.3); LYMPH % 13.7 % (8-40); MCHC 33.9 g/dl (32.0-36.0); MEAN CELL VOLUME 85.5 fl (80-96); MEAN PLT VOLUME 6.9 fl (7.5-11.1); MONO % 6.5 % (3.8-10.2); NEUT % 79.1 % (42.8-82.8); PLATELET COUNT 443 K/MM3 (134-434); RBC 4.03 M/mm3 (3.60-5.2); RDW 14.5 % (11.6-15.6); WHITE BLOOD COUNT 7.6 K/mm3 (4.0-10.0)
[2017-05-19 12:13] LABS: ALBUMIN 2.3 g/dl (3.4-5.0); ALK PHOS 161 U/L (45-117); ANION GAP 9 (8-16); BILIRUBIN,TOTAL 0.3 mg/dL (0.2-1.0); BLOOD UREA NITROGEN 6 mg/dL (7-18); CALCIUM 8.6 mg/dL (8.5-10.1); CHLORIDE 108 mmol/L (98-107); CO2 22 mmol/L (21-32); CREATININE 0.4 mg/dL (0.55-1.02); GLUCOSE,RANDOM 93 mg/dL (74-106); POTASSIUM 3.9 mmol/L (3.5-5.1); SGOT/AST 20 U/L (15-37); SGPT/ALT 24 U/L (12-78); SODIUM 139 mmol/L (136-145); TOT PROT 6.2 g/dl (6.4-8.2)
[2017-05-19 13:47] VITALS: BP 110/60; PULSE 74
== END 2017-05-19 13:47 | disposition left against medical advice (07) ==
LOC: JER 09:08
PROC: 3E033NZ Introduction of Analgesics, Hypnotics, Sedatives into Peripheral Vein, Percutaneous Approach (ICD-10-PCS; principal; 2017-05-19)
PROC: 3E033GC Introduction of Other Therapeutic Substance into Peripheral Vein, Percutaneous Approach (ICD-10-PCS; 2017-05-19)
PROC: 3E0337Z Introduction of Electrolytic and Water Balance Substance into Peripheral Vein, Percutaneous Approach (ICD-10-PCS; 2017-05-19)
DX: O26.893 Other specified pregnancy related conditions, third trimester (principal); Z3A.33 33 weeks gestation of pregnancy; J01.00 Acute maxillary sinusitis, unspecified
CPT/HCPCS: 36415; 80053; 85025; 96361; 96374; 96375; 99282-25; J0131; J7030

== ENCOUNTER 2017-06-29 20:53 | Inpatient (IN) | payer OTHER ==
[2017-06-29] MEDS ORDERED: SODIUM PHOSPHATE/NA BIPHOS 133 ML ENEMA PR ONE (23:00)
[2017-06-29] MEDS ORDERED: BUTORPHANOL TARTRATE 1 MG/ML VIAL IVPB ONE (23:13)
[2017-06-29] MEDS ORDERED: PROMETHAZINE HCL 25 MG/1 ML VIAL IVPUSH ONE (23:13)
--- NOTE | 2017-06-29 23:32 | HP ---
Past Medical History - Primary Care Physician PCP:: Radha Vargas - Admission Chief Complaint: 27 ys , 39.2 weeks iup , c/o onset LP since 7.00 pm. c /o leaking, srom ruled out, neg nitrazine test History of Present Illness: PNC at 2, [facility] wt gain 39 lbs chart not available presently panel 12/10/16 O pos, Hbsag neg, Rpr nr, Rubella immune , Hiv neg, Sickle neg, lead neg, CF screen neg gc/ct neg , h/h/11.7/34.6 , plt 355 urine c/s 50-100,000 Ecoli Rx Po Amoxcillin . 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 No: AIDS, HIV Psych: No: Addictions, Anxiety, Bipolar - Past Surgical History Past Surgical History: Yes: None Hx Myomectomy: No Hx Transabdominal Cerclage: No - Smoking History Smoking history: Never smoked Have you smoked in the past 12 months: No - Alcohol/Substance Use Hx Alcohol Use: No History of Substance Use: reports: None Home Medications - Allergies Allergies/Adverse Reactions: Allergies Allergy/AdvReac Type Severity Reaction Status Date / Time No Known Allergies Allergy Verified 06/30/17 08:22 - Home Medications Home Medications: Ambulatory Orders Pnv,Calcium 72/Iron/Folic Acid [ Plus Tablet] 1 each PO DAILY 12/30/16 Ferrous Sulfate [Iron] 325 mg PO DAILY 05/19/17 Valacyclovir HCl [Valtrex -] 1 tab PO DAILY 06/30/17 Physical Exam - Maternity Vital Signs: Vital Signs Temperature 98.9 F 06/29/17 23:12 Pulse Rate 88 06/29/17 23:12 Respiratory Rate 20 06/29/17 23:12 Blood Pressure 121/70 06/29/17 23:12 O2 Sat by Pulse Oximetry (%) Selected Entries 06/29/17 23:24 Weight 180 lb Constitutional: Yes: Well Nourished, Obese Eyes: Yes: WNL HENT: Yes: WNL Neck: Yes: WNL Cardiovascular: Yes: WNL Lungs: Clear to auscultation Breast(s): Yes: WNL - Abdominal Exam/OB Fundal Height: 38 Number of Fetuses: Single Presentation: Vertex Contractions: Yes Regularity: Irregular (5-7 min) Intensity: Moderate Monitor Mode: External Heart Rate (range): 150 Heart Rate Location: [facility] Category: I Accelerations: Uniform Decelerations: None - Vaginal Exam/OB Vaginal Bleediing: No Dilatation (cm): 1-2 cm Effacement (%): 60 Amniotic Membrane Status: Intact Nitrazine Test: Negative Presentation: Vertex/Position Station: -3 - Physical Exam Musculoskeletal: Yes: WNL Extremities: Yes: WNL. No: Calf Tenderness Edema: Yes Edema: LLE: 1+, RLE: 1+ Integumentary: Yes: WNL, Tattoos Deep Tendon Reflex Grade: Normal +2 ...Motor Strength: WNL Psychiatric: Yes: WNL, Alert, Oriented - Labs Lab Results: Laboratory Tests 06/29/17 06/29/17 06/29/17 23:35 23:35 23:35 WBC 10.2 H D Hgb 11.5 Hct 34.1 Plt Count 504 H Neutrophils % 76.4 Lymphocytes % 15.7 PT with INR 10.00 INR 0.88 PTT (Actin FS) 27.1 Sodium 139 Potassium 3.9 Chloride 107 Carbon Dioxide 21 BUN 11 Creatinine 0.6 Random Glucose 83 Blood Type Antibody Screen 06/29/17 23:35 WBC Hgb Hct Plt Count Neutrophils % Lymphocytes % PT with INR INR PTT (Actin FS) Sodium Potassium Chloride Carbon Dioxide BUN Creatinine Random Glucose Blood Type O POSITIVE Antibody Screen Negative Problem List - Problems (1) with 39 completed weeks gestation Code(s): Z3A.39 - 39 WEEKS GESTATION OF (2) Labor established Code(s): OKM5063 - (3) Obesity (BMI 35.0-39.9 without comorbidity) Code(s): E66.9 - OBESITY, UNSPECIFIED Assessment/Plan 27 yrs , 39.2 weks in early labor plan : trial vaginal delivery pitocin augmentation stadol + phenrgan for labor analgesia prn obtain chart from the clinic in AM history updated after reviewing the chart
[2017-06-29 23:39] VITALS: BMI 35.2
[2017-06-29] MEDS: DEXTROSE 5%-LACTATED RINGERS 1,000 ML IV SCH (23:45)
[2017-06-29 23:58] LABS: BASO % 0.3 % (0-2.0); EOS % 0.8 % (0-4.5); HEMATOCRIT 34.1 % (32.4-45.2); HEMOGLOBIN 11.5 GM/dL (10.7-15.3); LYMPH % 15.7 % (8-40); MCH 27.8 pg (25.7-33.7); MCHC 33.6 g/dl (32.0-36.0); MEAN CELL VOLUME 82.6 fl (80-96); MEAN PLT VOLUME 7.3 fl (7.5-11.1); MONO % 6.8 % (3.8-10.2); NEUT % 76.4 % (42.8-82.8); PLATELET COUNT 504 K/MM3 (134-434); RBC 4.13 M/mm3 (3.60-5.2); WHITE BLOOD COUNT 10.2 K/mm3 (4.0-10.0)
[2017-06-30 00:16] LABS: ANION GAP 11 (8-16); BLOOD UREA NITROGEN 11 mg/dL (7-18); CALCIUM 8.5 mg/dL (8.5-10.1); CHLORIDE 107 mmol/L (98-107); CO2 21 mmol/L (21-32); CREATININE 0.6 mg/dL (0.55-1.02); GLUCOSE,RANDOM 83 mg/dL (74-106); INR 0.88 (0.82-1.09); POTASSIUM 3.9 mmol/L (3.5-5.1); SODIUM 139 mmol/L (136-145)
[2017-06-30 00:19] LABS: ACTIVATED PTT 27.1 SECONDS (26.9-34.4)
[2017-06-30] MEDS: OXYTOCIN 30 UNITS in 0.9% NS 30 UNIT/500 ML INFUS.BAG IVPB SCH (00:30)
[2017-06-30] MEDS ORDERED: OXYTOCIN 30 UNITS in 0.9% NS 30 UNIT/500 ML INFUS.BAG IVPB ONE ×2 (00:37→15:51)
--- NOTE | 2017-06-30 06:43 | PN ---
Progress Note (short form) - Note Progress Note: pt feels mid pain uc are ireegular mild to moderate 2-3 or 4-6 min apart fhr 140-150 cat-1 6.30 AM ; exam cx 1-2 cm/60 %/vx -3 no change pitocin augmentation is being continued plan : pt may walk with pitcin contd monitor with walking toco po milk & toast can be permitted Selected Entries 06/30/17 03:00 Temperature 98.4 F Pulse Rate 86 Blood Pressure 96/54 Problem List - Problems (1) with 39 completed weeks gestation Code(s): Z3A.39 - 39 WEEKS GESTATION OF (2) Labor established Code(s): [id number] -
--- NOTE | 2017-06-30 13:41 | PN ---
Progress Note (short form) - Note Progress Note: 1.30 pm cx 2-3 cm ( ext os 3 cm, int os 2 cm ), 60 % , vx -3, mi uc 2-4 min, fhr 140-150 bpm , cat-1 Selected Entries 06/30/17 06/30/17 06/30/17 10:15 10:58 11:59 Temperature 98.4 F Pulse Rate 85 81 82 Blood Pressure 110/67 108/66 118/[address] pitocin augmentation Problem List - Problems (1) with 39 completed weeks gestation Code(s): Z3A.39 - 39 WEEKS GESTATION OF (2) Labor established Code(s): PQZ4301 -
[2017-06-30] MEDS ORDERED: BUTORPHANOL TARTRATE 1 MG/ML VIAL ONE ×2 (15:51)
[2017-06-30] MEDS ORDERED: PROMETHAZINE HCL 25 MG/1 ML VIAL ONE (15:51)
[2017-06-30] MEDS: DEXTROSE 5%-LACTATED RINGERS 1,000 ML IV SCH ×2 (16:10→23:00)
[2017-07-01] MEDS: OXYTOCIN 30 UNITS in 0.9% NS 30 UNIT/500 ML INFUS.BAG IVPB SCH (07:15)
--- NOTE | 2017-07-01 07:57 | PN ---
Progress Note (short form) - Note Progress Note: pt c/o pain , & discomfort now. yesterday 06/30 6.30 pm exam was 2-3 cm /60 % , WV , Vx -3 , no change in cx findings , FHR cat-1 , uc 2-4 min , mild, pt was sleepy from stadol 2mg + phenrgan 25 mg given at 3.55PM . Hence I decided to stop the pitocin at 8.00PM . Let her eat dinner . may take shower . let receptors get repleted again. 07/01/17 pitocin was restarted at 2.00AM 07/01/17 7.45 AM cx 3 cm int os, ext os 4 cm, 70 %, Mi , vx -3, vx well applied to cervix . FHR 150 cat-1 UC 3-5 min , pitocin 8ml/hr Selected Entries 07/01/17 06:00 Temperature 98.3 F Pulse Rate 82 Blood Pressure 121/54 Imp : prolonged Latent phase labor Plan ct pitocin augmentation ct trial 0f vaginal delivery stadol + phenrgan prn for labor analgesia & or epidural Problem List - Problems (1) with 39 completed weeks gestation Code(s): Z3A.39 - 39 WEEKS GESTATION OF (2) Labor established Code(s): [id number] - (3) Prolonged latent phase of labor Code(s): O62.0 - PRIMARY INADEQUATE CONTRACTIONS
[2017-07-01] MEDS ORDERED: ELECTROLYTE-148 SOLN 1,000 ML IV SCH (10:30)
[2017-07-01] MEDS ORDERED: BUPIVACAINE HCL/PF 0.25% (2.5MG/ML) 10 ML VIAL ONE ×2 (10:48→15:32)
[2017-07-01] MEDS ORDERED: FENTANYL/BUPIVACAINE/NS/PF - PCEA - 50 ML DISP.SYRIN EP ONE ×2 (10:49→15:03)
--- NOTE | 2017-07-01 10:56 | PN ---
Progress Note, Labor Vaginal Exam #1 Labor Exam Date: 07/01/17 Labor Exam Time: 10:30 Heart Rate (range): 140 Dilatation: 4 Effacement (%): 70 Amniotic Membrane Status: Intact Presentation: Vertex/Position Station: -3 Remarks: fhr cat-1 uc q 2-4 min pt requests for epidural Selected Entries 07/01/17 10:00 Temperature 98.3 F Pulse Rate 85 Blood Pressure 108/64 Vaginal Exam #2 Labor Exam Date: 07/01/17 Labor Exam Time: 13:58 Heart Rate (range): 150 Dilatation: 4 Effacement (%): 70 Amniotic Membrane Status: Ruptured (AROm clear) Station: -3 (-3/-2) Remarks: fhr cat-1 uc q 3 min dysfunctional epidural in progress. Selected Entries 07/01/17 14:00 Pulse Rate 91 H Respiratory 18 Rate Blood Pressure 111/68 Vaginal Exam #3 Labor Exam Date: 07/01/17 Labor Exam Time: 15:30 Heart Rate (range): 130 Dilatation: 6 Effacement (%): 90 Amniotic Membrane Status: Ruptured Presentation: Vertex/Position Station: 0 Remarks: fhr cat-1 uc 2-3 min Selected Entries 07/01/17 14:00 Temperature 99.1 F Pulse Rate 91 H Respiratory 18 Rate Blood Pressure 111/68 O2 Sat by Pulse 98 Oximetry (%) Vaginal Exam #4 Labor Exam Date: 07/01/17 Labor Exam Time: 16:40 Heart Rate (range): 140 Dilatation: 10 Effacement (%): 100 Station: +2 Remarks: fhr cat-1 uc q 2-3 min pt pushing Selected Entries 07/01/17 16:00 Temperature 98.7 F Pulse Rate 101 H Respiratory 18 Rate Blood Pressure 121/80
[2017-07-01] MEDS ORDERED: NALOXONE HCL 0.4 MG/ML VIAL IVPUSH PRN (11:11)
[2017-07-01] MEDS ORDERED: FENTANYL/BUPIVACAINE/NS/PF - PCEA - 50 ML DISP.SYRIN EP SCH (11:15)
[2017-07-01] MEDS ORDERED: LIDOCAINE HCL 1% PRESERVATIVE FREE - 30ML VIAL ONE (16:26)
[2017-07-01] MEDS ORDERED: OXYTOCIN 20 UNITS in 0.9% NS 20 UNIT/1,000 ML INFUS.BAG IV ONE (16:26)
[2017-07-01] MEDS ORDERED: oxyCODONE HCL 5 MG TABLET PO PRN (17:35)
[2017-07-01] MEDS ORDERED: BENZOCAINE 28 GM HEMORRHOIDAL OINTMENT TP PRN (17:35)
[2017-07-01] MEDS ORDERED: WITCH HAZEL 50% (TUCKS) 40 PAD/JAR PAD TP PRN (17:35)
[2017-07-01] MEDS ORDERED: BISACODYL 10 MG SUPP.RECT RC PRN (17:35)
[2017-07-01] MEDS ORDERED: METHYLERGONOVINE MALEATE 0.2 MG/1 ML AMP IM PRN (17:35)
[2017-07-01] MEDS ORDERED: BENZOCAINE 20% 57 GM BOTTLE TP PRN (17:35)
[2017-07-01] MEDS ORDERED: OXYTOCIN 20 UNITS in 0.9% NS 20 UNIT/1,000 ML INFUS.BAG IV SCH (17:45)
--- NOTE | 2017-07-01 17:50 | PN ---
Delivery - Delivery Vaginal Delivery: No Problems, Spontaneous (baby delevered Vx, ALYSSA position , immediate oral & nasal suction was done, perineum , vagina intact) Type of Anesthesia: Epidural EBL (cc): 350 Delivery, Single - Stages of Labor Date 1st Stage Initiatied: 06/29/17 Time 1st Stage Initiated: 19:00 Date 2nd Stage Initiated: 07/01/17 Time 2nd Stage Initiated: 16:40 Date of Delivery: 07/01/17 Time of Delivery: 17:08 Date Placenta Delivered: 07/01/17 Time Placenta Delivered: 17:20 Placenta: Yes: Spontaneous, Uterine Exploration - Condition of Epic Specialist/Per Diem Present: No Gender: Male Weight: 7 lb 6 oz Position: Right, OA Total Hours ROM (Hrs/Mins): 3hrs 22 min - 1 Minute Total Score: 9 5 Minutes Total Score: 9 - [place] Feeding Plan Initial Plan: Elected not to breastfeed exclusively throughout hospitalization Remarks - Remarks Remarks: 27 yrs , 39.2 weeks admitted in early labor on 06/29/17 prolonged latent phase of labor noted Pitocin augmentation was given 06/30/17 & d/chaitanya after 20 hrs & restarted after 6hrs of free interval of pitocin she received stadol 2 mg + phenrgan 25 mg iv for labor analgesia on 06/30/17, Epidural analgesia given on 07/01/17 Intrapartum course uneventful
[2017-07-01 18:04] LABS: VENOUS PC02 41.2 mmHg (38-52); VENOUS PO2 36.6 mmHg (28-48)
[2017-07-01 18:06] LABS: VENOUS PH 7.2 (7.32-7.42)
[2017-07-02] MEDS: IBUPROFEN 600 MG TABLET (FP) PO PRN ×2 (04:49→21:22)
[2017-07-02] MEDS: ACETAMINOPHEN 325 MG TABLET (FP) PO PRN ×2 (04:51→21:21)
--- NOTE | 2017-07-02 06:10 | PN ---
Progress Note (short form) - Note Progress Note: ppd 1 s/p ,doing well, no excess vagina;l bleeding CBC, BMP 06/29/17 23:35 06/29/17 23:35 Last Vital Signs Temp Pulse Resp BP Pulse Ox 98.5 F 86 18 97/56 98 07/02/17 02:00 07/02/17 02:00 07/02/17 02:00 07/02/17 02:00 07/01/17 18:30 abdomen soft, no cva uterus firm, non tender lochia mild no calf tenderness plan ambulate , cbc
[2017-07-02 07:55] LABS: BASO % 0.2 % (0-2.0); EOS % 0.6 % (0-4.5); HEMATOCRIT 28.5 % (32.4-45.2); HEMOGLOBIN 9.4 GM/dL (10.7-15.3); LYMPH % 11.3 % (8-40); MCH 27.4 pg (25.7-33.7); MEAN CELL VOLUME 83.1 fl (80-96); MEAN PLT VOLUME 7.5 fl (7.5-11.1); MONO % 7.8 % (3.8-10.2); NEUT % 80.1 % (42.8-82.8); PLATELET COUNT 424 K/MM3 (134-434); RBC 3.43 M/mm3 (3.60-5.2); RDW 15.2 % (11.6-15.6); WHITE BLOOD COUNT 12.3 K/mm3 (4.0-10.0)
[2017-07-02] MEDS: FERROUS SO4 325 MG TABLET (FP) PO SCH ×2 (08:26→17:14)
[2017-07-02] MEDS: PRENATAL VITAMINS W/ FOLIC ACID TABLET (FP) PO SCH (09:34)
[2017-07-02] MEDS ORDERED: SENNOSIDES/DOCUSATE COMBO (SENNA PLUS) TABLET (UD) PO PRN (22:00)
[2017-07-02 23:09] VITALS: PULSE 74
--- NOTE | 2017-07-03 07:40 | DS ---
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 No: Calf Tenderness Edema: LLE: 1+, RLE: 1+ Integumentary: Yes: Tattoos Neurological: Yes: WNL ...Motor Strength: WNL Psychiatric: Yes: WNL, Alert, Oriented Labs: CBC, BMP 07/02/17 06:00 06/29/17 23:35 Delivery - Delivery Vaginal Delivery: No Problems, Spontaneous (baby delevered Vx, ALYSSA position , immediate oral & nasal suction was done, perineum , vagina intact) Type of Anesthesia: Epidural Episiotomy/Laceration: None EBL (cc): 350 Delivery, Single - Stages of Labor Date 1st Stage Initiatied: 06/29/17 Time 1st Stage Initiated: 19:00 Date 2nd Stage Initiated: 07/01/17 Time 2nd Stage Initiated: 16:40 Date of Delivery: 07/01/17 Time of Delivery: 17:08 Time Placenta Delivered: 17:20 Placenta: Yes: Spontaneous, Uterine Exploration - 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: No Infant Gender: Male Weight: 7 lb 6 oz Position: Right, OA Total Hours ROM (Hrs/Mins): 3hrs 22 min - 1 Minute Total Score: 9 5 Minutes Total Score: 9 - Feeding Plan Initial Plan: Elected not to breastfeed exclusively throughout hospitalization Remarks - Remarks Remarks: 27 yrs , 39.2 weeks admitted in early labor on 06/29/17 prolonged latent phase of labor noted Pitocin augmentation was given 06/30/17 & d/chaitanya after 20 hrs & restarted after 6hrs of free interval of pitocin she received stadol 2 mg + phenrgan 25 mg iv for labor analgesia on 06/30/17, Epidural analgesia given on 07/01/17 Intrapartum course uneventful pp course unevebtful anemia counselled h/o pos ppd , chest xray to be done Chest Xray possible left upper lobe granuloma, no significant change since 2012 . pt recommended to follow with pulmonary discharge today Discharge Summary Reason For Visit: LABOR Current Active Problems Anemia (Acute) Labor established (Acute) Obesity (BMI 35.0-39.9 without comorbidity) (Acute) with 39 completed weeks gestation (Acute) Prolonged latent phase of labor (Acute) Condition: Stable - Instructions Diet, Activity, Other Instructions: Post Instructions DIET: Continue good diet high in protein, calcium, and iron rich foods. Drink at least eight (8) glasses of water daily in addition to other fluids. ___ Regular diet MEDICATIONS: Continue vitamins and iron as previously directed. Motrin and Tylenol may be taken for minor discomfort. ACTIVITY: Mild to moderate exercise may be started in two (2) weeks. Take frequent rest periods. Resume normal activity after six (6) week check up. WOUND CARE OF OPERATIVE SITE: Continue use of perineal bottle until vaginal discharge stops. Keep area clean. Shower daily. Keep abdominal wound dry. Report any drainage or redness to physician. Tub baths, tampons and douches are not permitted for [address] Breast feeding & or Bottle feeding BREAST CARE: (For those that are not ): If engorgement occurs: Wear tight fitting bra. Take Tylenol or Motrin for pain. Apply cold packs (ice in bags to each breast ) FAMILY PLANNING: There are many control alternatives to pursue and they should be discussed at your first office visit. You may resume sexual activity after your six (6) week check up. (Remember, is not a contraceptive) NEXT PHYSICIAN APPOINTMENT: Be certain to call for a six (6) week appointment, unless otherwise directed. RECOMMEND Follow Up with Pulmonary for Left Upper Lobe Granuloma Call Clinic or got to Emergency Dept if you have any of the following: Heavy vaginal bleeding Painful urination Leg pain Unusual odor noted to vaginal bleeding High fever Red streaking noted on breast Referrals: Radha Vargas MD [Staff Physician] - Disposition: HOME - Home Medications Comprehensive Discharge Medication List: Ambulatory Orders Pnv,Calcium 72/Iron/Folic Acid [ Plus Tablet] 1 each PO DAILY 12/30/16 Ferrous Sulfate [Iron] 325 mg PO DAILY 05/19/17 Valacyclovir HCl [Valtrex -] 1 tab PO DAILY 06/30/17 Acetaminophen [Tylenol .Regular Strength -] 650 mg PO Q3H PRN tablet 07/02/17 Ferrous Sulfate [Feosol] 325 mg PO BIDWM #60 tab 07/02/17 Ibuprofen [Motrin -] 200 mg PO Q4H PRN tablet 07/02/17 Vitamins (Sjr) - 1 tab PO DAILY #30 tablet 07/02/17
[2017-07-03 07:46] VITALS: BP 133/48; TEMP 98
[2017-07-03] MEDS: PRENATAL VITAMINS W/ FOLIC ACID TABLET (FP) PO SCH (09:28)
[2017-07-03] MEDS: FERROUS SO4 325 MG TABLET (FP) PO SCH (09:28)
== END 2017-07-03 12:00 | disposition home or self-care (01) | DRG 560 ==
LOC: JDEL 20:53 → JLDR 22:45 → J3W 07-01 20:00
PROVIDERS: ADMIT Obstetrics & Gynecology; ATTEND Obstetrics & Gynecology
PROC: 10E0XZZ Delivery of Products of Conception, External Approach (ICD-10-PCS; principal; 2017-07-01)
DX: O99.214 Obesity complicating childbirth (principal); E66.9 Obesity, unspecified; Z68.35 Body mass index [BMI] 35.0-35.9, adult; O63.0 Prolonged first stage (of labor); O99.02 Anemia complicating childbirth; D64.9 Anemia, unspecified; Z3A.39 39 weeks gestation of pregnancy; Z37.0 Single live birth
CPT/HCPCS: 36415; 59409; 71046-TC-FY; 80048; 82803; 85025; 85610; 85730; 86593; 86850; 86900; 86901

== ENCOUNTER 2022-01-22 16:30 | Inpatient (IN) | payer OTHER ==
[2022-01-22 17:46] VITALS: BMI 37.8
[2022-01-22 18:11] LABS: BASO % 0.1 % (0-2.0); EOS % 1.2 % (0-4.5); HEMATOCRIT 34.4 % (32.4-45.2); HEMOGLOBIN 11.1 GM/dL (10.7-15.3); LYMPH % 14.9 % (8-40); MCH 25.3 pg (25.7-33.7); MCHC 32.3 g/dl (32.0-36.0); MEAN CELL VOLUME 78.4 fl (80-96); MEAN PLT VOLUME 7.2 fl (7.5-11.1); MONO % 7.8 % (3.8-10.2); PLATELET COUNT 537 10^3/uL (134-434); RBC 4.39 M/mm3 (3.60-5.2); RDW 20.1 % (11.6-15.6); WHITE BLOOD COUNT 6.4 K/mm3 (4.0-10.0)
[2022-01-22 18:25] LABS: INR 0.91 (0.83-1.09); PROTHROMBIN TIME (PATIENT) 10.4 SEC (9.7-13.0)
[2022-01-22 18:36] LABS: CALCIUM 9.1 mg/dL (8.5-10.1)
[2022-01-22 18:37] LABS: BLOOD UREA NITROGEN 7.6 mg/dL (7-18)
[2022-01-22 18:40] LABS: CREATININE 0.5 mg/dL (0.55-1.3)
[2022-01-22] MEDS: DEXTROSE 5%-LACTATED RINGERS 1,000 ML IV SCH (19:20)
[2022-01-22] MEDS: MISOPROSTOL 100 MCG TABLET PV SCH (20:25)
[2022-01-22] MEDS ORDERED: SODIUM CHLORIDE 500 ML IV STA (23:46)
[2022-01-23] MEDS: MISOPROSTOL 100 MCG TABLET PV SCH ×2 (00:35→21:06)
[2022-01-23] MEDS ORDERED: morphine SULFATE 4 MG/ML VIAL IVPB ONE (03:09)
[2022-01-23] MEDS ORDERED: SODIUM CHLORIDE 500 ML IV STA ×2 (07:13→20:00)
[2022-01-23] MEDS ORDERED: OXYTOCIN 30 UNITS in 0.9% NS 30 UNIT/500 ML INFUS.BAG IVPB SCH (08:45)
[2022-01-23 13:31] LABS: HIV INTERPRETATION NEGATIVE (NEGATIVE)
[2022-01-23] MEDS ORDERED: OXYTOCIN 30 UNITS in 0.9% NS 30 UNIT/500 ML INFUS.BAG IVPB ONE (18:31)
[2022-01-23] MEDS: DEXTROSE 5%-LACTATED RINGERS 1,000 ML IV SCH (21:07)
[2022-01-24] MEDS ORDERED: SODIUM CHLORIDE 1,000 ML IV STA (00:27)
[2022-01-24] MEDS ORDERED: FENTANYL/BUPIVACAINE/NS/PF - PCEA - 50 ML DISP.SYRIN EP ONE (00:29)
[2022-01-24] MEDS ORDERED: FENTANYL CITRATE/PF 50 MCG/ML VIAL ONE (00:33)
[2022-01-24] MEDS ORDERED: NALOXONE HCL 0.4 MG/ML VIAL IVPUSH PRN (01:11)
[2022-01-24] MEDS ORDERED: FENTANYL/BUPIVACAINE/NS/PF - PCEA - 50 ML DISP.SYRIN EP SCH (01:15)
[2022-01-24] MEDS ORDERED: LIDOCAINE HCL 1% PRESERVATIVE FREE - 30ML VIAL ONE (02:13)
[2022-01-24] MEDS ORDERED: OXYTOCIN 20 UNITS in 0.9% NS 20 UNIT/1,000 ML INFUS.BAG IV ONE (02:14)
[2022-01-24] MEDS ORDERED: BENZOCAINE 28 GM HEMORRHOIDAL OINTMENT TP PRN (03:02)
[2022-01-24] MEDS ORDERED: WITCH HAZEL 50% (TUCKS) 40 PAD/JAR PAD TP PRN (03:02)
[2022-01-24] MEDS ORDERED: BENZOCAINE 20% 57 GM BOTTLE TP PRN (03:02)
[2022-01-24] MEDS ORDERED: OXYTOCIN 20 UNITS in 0.9% NS 20 UNIT/1,000 ML INFUS.BAG IV SCH (03:15)
[2022-01-24 03:45] LABS: CORD HCO3 21.5 mmHg (20-29); CORD HCO3 22.8 mmHg (20-29); CORD PCO2 47.6 mmHg (30-78); CORD PCO2 55.5 mmHg (30-78); CORD pH 7.207 (7.14-7.44); CORD pH 7.298 (7.14-7.44)
[2022-01-24 05:55] VITALS: RESP 18
[2022-01-24] MEDS: IBUPROFEN 600 MG TABLET (FP) PO PRN (13:16)
[2022-01-24] MEDS: ACETAMINOPHEN 325 MG TABLET (FP) PO PRN (22:06)
[2022-01-25] MEDS: ACETAMINOPHEN 325 MG TABLET (FP) PO PRN ×2 (08:23→17:51)
[2022-01-25 08:40] LABS: BASO % 0.1 % (0-2.0); EOS % 0.9 % (0-4.5); HEMATOCRIT 27.8 % (32.4-45.2); HEMOGLOBIN 9.1 GM/dL (10.7-15.3); LYMPH % 12.5 % (8-40); MCH 25.6 pg (25.7-33.7); MCHC 32.6 g/dl (32.0-36.0); MEAN CELL VOLUME 78.4 fl (80-96); MEAN PLT VOLUME 7.3 fl (7.5-11.1); MONO % 5.5 % (3.8-10.2); PLATELET COUNT 363 10^3/uL (134-434); RBC 3.55 M/mm3 (3.60-5.2); RDW 20.1 % (11.6-15.6); WHITE BLOOD COUNT 7.8 K/mm3 (4.0-10.0)
[2022-01-25] MEDS: IBUPROFEN 600 MG TABLET (FP) PO PRN (15:15)
[2022-01-25] MEDS: FERROUS SO4 325 MG TABLET (FP) PO SCH ×2 (15:16→21:35)
[2022-01-25] MEDS: ASCORBIC ACID 500 MG TABLET (FP) PO SCH ×2 (15:16→21:35)
[2022-01-26 00:15] VITALS: TEMP 97.9
[2022-01-26 08:37] VITALS: BP 98/64; PULSE 80
[2022-01-26] MEDS: ASCORBIC ACID 500 MG TABLET (FP) PO SCH (09:18)
[2022-01-26] MEDS: FERROUS SO4 325 MG TABLET (FP) PO SCH (09:18)
== END 2022-01-26 16:07 | disposition home or self-care (01) | DRG 560 ==
LOC: JLDR 16:30 → J3W 01-24 04:35
PROVIDERS: ADMIT Obstetrics & Gynecology Maternal & Fetal Medicine; ATTEND Obstetrics & Gynecology Maternal & Fetal Medicine
PROC: 0HQ9XZZ Repair Perineum Skin, External Approach (ICD-10-PCS; principal; 2022-01-24)
PROC: 10E0XZZ Delivery of Products of Conception, External Approach (ICD-10-PCS; 2022-01-24)
DX: O70.0 First degree perineal laceration during delivery (principal); Z3A.39 39 weeks gestation of pregnancy; Z37.0 Single live birth; O99.213 Obesity complicating pregnancy, third trimester; O99.02 Anemia complicating childbirth; O41.03X0 Oligohydramnios, third trimester, not applicable or unspecified
CPT/HCPCS: 36415; 36600; 59409; 80048; 82803; 85025; 85610; 85730; 86780; 86850; 86900; 86901; 87389; 88307-TC; C9803-CS; U0003; U0005